=== PATIENT | female | born 1995 | race Two or more races ===

== ENCOUNTER 2017-09-15 11:53 | Emergency (ER) | payer SELFPAY ==
[~2017-09-15] VITALS: Ht 154.9 cm; Wt 61.7 kg
[2017-09-15 12:10] VITALS: BP 136/74
== END 2017-09-15 13:56 | disposition home or self-care (01) ==
LOC: ER 11:53
DX: N39.0 Urinary tract infection, site not specified (principal); N90.89 Other specified noninflammatory disorders of vulva and perineum
CPT/HCPCS: 81002

== ENCOUNTER → 2019-01-08 | Emergency (ER) | payer MEDICAID | END | disposition left against medical advice (07) | LOC: ER 21:20 | DX: R10.9 Unspecified abdominal pain (principal); Z53.21 Procedure and treatment not carried out due to patient leaving prior to being seen by health care provider ==